=== PATIENT | male | born 1980 | race Caucasian/White ===

== ENCOUNTER 2018-12-17 20:19 | Observation (INO) ==
--- NOTE | 2018-12-17 21:01 | Emergency Department Note ---
ED Disposition Clinical Impression: IDDM (insulin dependent diabetes mellitus), Bronchitis, Tobacco use Diabetic ketoacidosis Qualifiers: Diabetes mellitus type: type 1 Diabetes mellitus complication detail: without coma Qualified Code(s): E10.10 - Type 1 diabetes mellitus with ketoacidosis without coma Disposition: Admitted as Observation Condition on Discharge: Good Instructions: DI for Hyperglycemia -- Adult Referrals: Provider,Referral, MD [Primary Care Provider] - - Critical Care Critical Care Time: No Attestation: On 12/17/18, the high probability of a clinically significant, sudden or life threatening deterioration of the following system(s) required my full and direct attention, intervention and personal management. The time I documented below is in addition to time spent performing reported procedures but includes the following listed in this critical care notation. Medical Decision Making - Medical Records Medical records reviewed: Yes: I reviewed the patient's medical records. - Nicola Inquiry Pt receiving controlled substance: No Vital Signs: 12/17/18 20:42 12/17/18 21:06 Temperature 99.0 F Temperature Source Oral Pulse Rate [Left] 54 L 90 Respiratory Rate 16 18 Blood Pressure [Right Arm] 128/58 L 125/70 Blood Pressure Mean [Right Arm] 81 88 Blood Pressure Source [Right Arm] Automatic Cuff Automatic Cuff Blood Pressure Position [Right Arm] Sitting Sitting 02 Sat by Pulse Oximetry 97 95 Oxygen Delivery Method Room Air - Lab Data Lab results reviewed: Yes: I reviewed the patient's lab results. Lab Results 12/17/18 20:49: POC Glucose 379 H* 12/17/18 20:55: WBC 8.2, RBC 5.66, Hgb 17.2, Hct 48.5, MCV 85.6, MCH 30.4, MCHC 35.5 H, RDW 13.5, Plt Count 375, MPV 7.1 L, Neut % (Auto) 63.0, Lymph % (Auto) 30.6, [place] % (Auto) 3.8, Eos % (Auto) 1.8, Baso % (Auto) 0.7, Neut # (Auto) 5.2, Lymph # (Auto) 2.5, [place] # (Auto) 0.3, Eos # (Auto) 0.2, Baso # (Auto) 0.1 12/17/18 20:55: Sodium 134 L, Potassium 4.2, Chloride 97 L, Carbon Dioxide 24, Anion Gap 17.2 H, BUN 20 H, Creatinine 1.00, Estimated Creat Clear 125, Estimated GFR 84, Est GFR ( Amer) 101, Glucose 460 H*, Calcium 9.1, Total Bilirubin 0.5, AST 3 L, ALT 18, Alkaline Phosphatase 115, Total Protein 7.0, Albumin 4.1, Globulin 2.9, Albumin/Globulin Ratio 1.4 12/17/18 20:55: Lactate 0.4 12/17/18 20:55: Acetone Level Small 12/17/18 21:20: Influenza Type A Ag Negative, Influenza Type B Ag Negative 12/17/18 21:20: Group A Strep Rapid Negative 12/17/18 21:40: Urine Color Yellow, Urine Appearance Clear, Urine pH 6.0, Ur Sp ecific [place] 1.020, Urine Protein Negative, Urine Glucose (UA) 3+, Urine Ketones 1+, Urine Blood Negative, Urine Nitrate Negative, Urine Bilirubin Negative, Urine Urobilinogen 0.2, Ur Leukocyte Esterase Negative Result diagrams: 12/17/18 20:55 12/17/18 20:55 Orders (Tests/Meds): ED MEDICATIONS Generic Name Dose Route Start Last Admin Trade Name Freq PRN Reason Stop Dose Admin Sodium Chloride 1,000 mls @ 999 mls/hr 12/17/18 21:00 12/17/18 21:00 Sod Chlor 0.9% 1000ml Bag IV 12/17/18 22:00 999 mls/hr .Q1H1M GITA Administration Sodium Chloride 1,000 mls @ 999 mls/hr 12/17/18 22:00 12/17/18 21:58 Sod Chlor 0.9% 1000ml Bag IV 12/17/18 23:00 999 mls/hr .Q1H1M GIAT Administration Sodium Chloride 10 ml 12/17/18 20:55 Saline Flush 10ml Syringe IV 01/16/19 20:54 NEEDED PRN Maintain IV Site ORDERS Category Date Time Status Chest XR 2 view (NOT portable) [XR chest 2V] Stat Exams 12/17/18 20:52 Taken Urinalysis and Microscopic Stat Lab 12/17/18 21:40 Results Blood Culture Stat Micro 12/17/18 21:08 Ordered Blood Culture Stat Micro 12/17/18 21:08 Ordered Blood Culture Stat Micro 12/17/18 21:08 Ordered Strep Screen Confirmation Stat Micro 12/17/18 21:20 Received - Radiology Data #1 Image(s): Chest Image Reviewed: Yes I reviewed the patient's radiology image Preliminary Findings: Abnormal (perihilar changes ) General Adult HPI - General Chief complaint: Hyper/Hypoglycemia Stated complaint: SUGAR HIGH Time Seen by Provider: 12/17/18 20:50 Mode of Arrival: Ambulatory Source of Information: Patient, Significant Other, Medical Record Limitations: No Limitations Description of Symptoms (Recalled from ER Triage Doc. by RN): Pt taking ABX for bronchitis and unable to keep his FSBS in limit 15 units Novolog at 1500 today - History of Present Illness HPI narrative: wm who is iddm and has registry np cough with persistant elevated glu despite meds and has been on abx x 1 day presents for eval- has hx of dka and tob use Onset (ago): day(s) Severity: moderate Associated symptoms: denies other symptoms Treatments prior to arrival: none - Related Data Home Medications Medication Instructions Recorded Confirmed Insulin Aspart [Novolog] 15 units SQ TID 07/07/18 12/17/18 Insulin Glargine,Hum.rec.anlog 100 unit SQ DAILY 07/07/18 12/17/18 [Basaglar Kwikpen U-100] Amoxicillin/Potassium Clav 1 tab PO Q12H 12/17/18 12/17/18 [Augmentin 875-125 Tablet] Benzonatate [Tessalon Perle 100mg 100 mg PO TID PRN 12/17/18 12/17/18 Cap] Pseudoephedrine HCl [Sudafed] 30 mg PO DAILY 12/17/18 12/17/18 Allergies Allergy/AdvReac Type Severity Reaction Status Date / Time acetaminophen [From Percocet] Allergy Verified 12/17/18 20:56 oxycodone [From Percocet] Allergy Verified 12/17/18 20:56 [facility] History - Hepatitis A Screen Drug use history?: No High risk sexual behaviors?: No History of sexually transmitted infection?: No Currently employed?: No Childcare worker?: No Do you have indoor plumbing?: Yes Do you have electricity?: Yes Attestation statement:: This patient has been screened for Hepatitis A risk factors. I have reviewed the patient's past medical history: Yes - Social History Smoking Status: Current every day smoker Tobacco Type: cigarettes Alcohol Intake: never Occupational Status: employed - Psychiatric History Expresses thoughts of harming self/others: None Suicide Plan Description: No Plan ROS Obtained: Yes All systems reviewed & no additional complaints - Constitutional Constitutional: Denies fever(s) - Eyes Eyes: Denies change in vision - ENT Ears, Nose, Mouth, and Throat: Denies sore throat - Cardiovascular Cardiovascular: Denies chest pain - Respiratory Respiratory: Yes cough, Yes non-productive cough, No coughing up blood - Gastrointestinal Gastrointestingal: Reports: nausea. Denies: abdominal pain - Genitourinary Male Genitourinary: Denies hematuria - Musculoskeletal Musculoskeletal: Denies joint pain, Denies neck pain - Integumentary/Breasts Skin/Breast: Denies rash - Neurologic Neurologic: Denies seizure-like activity Physical Exam - General General appearance: alert - Head Head exam: normocephalic - Eye Eye exam: Present: PERRL, EOMI. Absent: scleral icterus - ENT ENT exam: Present: mucous membranes dry - Neck Neck exam: Present: trachea midline - Respiratory Respiratory exam: Present: normal lung sounds bilaterally. Absent: respiratory distress - Cardiovascular Cardiovascular exam: Present: regular rate, systolic murmur - Abdominal Exam Abdominal exam: Present: soft - Extremities Exam Extremities exam: Present: full ROM - Neurological Exam Neurological exam: Present: oriented X3, CN II-XII intact - Psychiatric Psychiatric exam: Present: normal affect - Skin Skin exam: Absent: rash
[2018-12-17 21:09] LABS: Basophils # 0.1 K/mm3 (0-0.2); Basophils % 0.7 % (0.1-2.0); Eosinophils # 0.2 K/mm3 (0.0-0.4); Eosinophils % 1.8 % (0.1-12.0); Hematocrit 48.5 % (42.0-52.0); Hemoglobin 17.2 g/dL (14.1-18.0); Lymphocytes # 2.5 K/mm3 (0.7-4.5); Lymphocytes % 30.6 % (10-50); Mean Corpuscular HGB Conc 35.5 g/dL (31.8-35.4); Mean Corpuscular Hemoglobin 30.4 pg (27.0-31.2); Mean Corpuscular Volume 85.6 fl (80-94); Mean Platelet Volume 7.1 fl (7.4-10.4); Monocytes # 0.3 K/mm3 (0.1-1.0); Monocytes % 3.8 % (1.7-9.3); Neutrophils # 5.2 K/mm3 (1.8-7.8); Platelet Count 375 K/mm3 (142-424); Red Blood Count 5.66 M/mm3 (4.60-6.20); Red Cell Distribution Width 13.5 % (11.5-17.5); White Blood Count 8.2 K/mm3 (4.8-10.8)
[2018-12-17 21:27] LABS: Albumin Level 4.1 gm/dL (3.4-5.0); Albumin/Globulin Ratio 1.4 (1.1-1.8); Anion Gap 17.2 mEq/L (5-15); Bilirubin,Total 0.5 mg/dL (0.2-1.0); Calcium 9.1 mg/dL (8.5-10.1); Globulin 2.9 gm/dl (1.3-3.2); Potassium 4.2 mmoL/L (3.5-5.1)
[2018-12-17 21:47] LABS: Microscopic, Urine URINE MICROSCOPIC (MICROSCOPIC)
[2018-12-17 21:50] LABS: Appearance,Urine CLEAR (Clear); Bilirubin,Urine Negative (Negative); Blood, Urine Negative (Negative); Color,Urine YELLOW (Yellow); Glucose,Urine (UA) 3+ (Negative); Ketones,Urine 1+ (Negative); Leukocyte Esterase,Urine Negative (Negative); Protein,Urine Negative (Negative); Urobilinogen,Urine 0.2 EU/dl (0.2)
[2018-12-17 22:14] LABS: WBC,Urine Occasional #/hpf (0-3)
[2018-12-17 22:15] LABS: Bacteria,Urine Trace /lpf
[2018-12-18 07:33] LABS: Basophils % 0.7 % (0.1-2.0); Monocytes # 0.3 K/mm3 (0.1-1.0)
[2018-12-18 07:44] LABS: Eosinophils # 0.1 K/mm3 (0.0-0.4); Hematocrit 42.4 % (42.0-52.0); Lymphocytes # 2.4 K/mm3 (0.7-4.5); Lymphocytes % 35.1 % (10-50); Mean Corpuscular HGB Conc 34.8 g/dL (31.8-35.4); Mean Corpuscular Hemoglobin 29.8 pg (27.0-31.2); Mean Corpuscular Volume 85.5 fl (80-94); Mean Platelet Volume 7.1 fl (7.4-10.4); Monocytes % 4.6 % (1.7-9.3); Neutrophils # 3.9 K/mm3 (1.8-7.8); Neutrophils % 57.7 % (37.0-80.0); Platelet Count 258 K/mm3 (142-424); Red Blood Count 4.95 M/mm3 (4.60-6.20); Red Cell Distribution Width 13.6 % (11.5-17.5); White Blood Count 6.7 K/mm3 (4.8-10.8)
[2018-12-18 07:46] LABS: Anion Gap 11.2 mEq/L (5-15); Calcium 8.3 mg/dL (8.5-10.1); Chol/HDL Ratio 4.6 (1-3.5); Potassium 3.2 mmoL/L (3.5-5.1)
[2018-12-18 07:51] LABS: Hemoglobin 14.8 g/dL (14.1-18.0)
--- NOTE | 2018-12-18 08:05 | Pharmacy Consult Notes ---
[facility] Pharmacy VTE Monitoring - Patient Demographics Admission date: 12/17/18 Report Date: 12/18/18 Time: 08:05 Allergies/Adverse Reactions: Patient Allergies acetaminophen [From Percocet] Allergy (Verified 12/17/18 20:56) oxycodone [From Percocet] Allergy (Verified 12/17/18 20:56) Height: 1.8 m Weight: 87.742 kg Patient Problems: Current Active Problems IDDM (insulin dependent diabetes mellitus) (Acute) Diabetic ketoacidosis (Acute) Bronchitis (Acute) Tobacco use (Acute) - VTE Risk Labs: VTE Related Lab Results Hgb 14.8 g/dL (14.1-18.0) D 12/18/18 06:22 Hct 42.4 % (42.0-52.0) 12/18/18 06:22 Plt Count 258 K/mm3 (142-424) D 12/18/18 06:22 BUN 13 mg/dL (7-18) D 12/18/18 06:22 Creatinine 0.67 mg/dL (0.70-1.30) L D 12/18/18 06:22 Estimated Creat Clear 186 mL/min (50-200) 12/18/18 06:22 Was VTE Risk Assessment Performed: Yes VTE Score: 1 VTE Risk Level: Very Low Risk Clinical Trial Participant: No - Prophylaxis VTE Prophylaxis Ordered?: Yes Types of VTE Prophylaxis: TEDS Knee High Location of Applied Device: Not Applicable
--- NOTE | 2018-12-18 08:41 | H&P/Discharge Summary ---
<Kenia Griggs - Last Filed: 12/18/18 11:56> General - General Admission date:: 12/17/18 Discharge date: 12/18/18 *Admission Date: 12/17/18 *Chief complaint: elevated glucose levels *History of present illness: Mr. Grigsby is a 38-year-old male with type 1 diabetes. He states he began feeling poorly on Friday with some cough and congestion and his glucose began elevating. His glucose stayed elevated all day on Friday, and on, Friday he went to see his primary care physician Dr. Jesus in [place]. He had a flu swab done which was negative and he was diagnosed with a bronchitis. He was started on Augmentin as well as some Sudafed and Tessalon Perles for his bronchitis. He states he went home and took the medication, but his glucose continued to elevate. He had to take 105 units of insulin on Friday and his glucose still stayed above 245. Most of the glucose checks were not even able to be read on his monitor. He states he has been in DKA 4-5 times in the last y ear and always been related to illness, therefore he went ahead and presented to the emergency room when he could not get his sugar below 250. He was found to be in DKA and was started on insulin as well as antibiotics for his bronchitis. The patient's glucose has improved greatly and was in the 100s this morning. His acetone is negative. He states he feels great and is anxious to get home. [facility] History I have reviewed the patient's past medical history: Yes Medical History: Reports:: Diabetes Mellitus Type 1 Denies:: MRSA *Have you ever received a pneumonia vaccine?: No *Have you received a flu vaccine this season?: No Other Surgeries: Yes: Hernia Repair - *Social History Educational Level: Attended College Smoking Status: Current every day smoker Tobacco Type: cigarettes # Packs/Day (cigarettes): 1 Alcohol Intake: never *Occupational Status:: employed Household Members: spouse, children *Travel in the last 8 weeks: None - Psychiatric History Expresses thoughts of harming self/others: None Suicide Plan Description: No Plan Family Hx:: Cancer, Diabetes, Hyperlipidemia, Hypertension Review of Systems - Constitutional Reports fever(s), Reports weakness - Eyes Denies blurry vision, Denies double vision - ENT Reports sore throat, Denies nasal congestion - *Cardiovascular Denies chest pain, Denies rapid, pounding, or irregular heartbeat - *Respiratory Reports cough, Denies shortness of breath, Denies wheezing - *Gastrointestinal Reports abdominal pain, Denies loose stools, Denies nausea, Denies vomiting - *Genitourinary Denies difficulty urinating, Denies painful urination - *Musculoskeletal Denies joint pain, Denies body aches - *Neurologic Denies seizure-like activity, Denies dizziness, Denies weakness Exam Vital signs and Labs for Last 24 Hours: Temp Pulse Resp BP Pulse Ox 98.0 F 62 17 112/73 98 12/18/18 04:00 12/18/18 04:00 12/18/18 04:00 12/18/18 04:00 12/18/18 04:00 Laboratory Results - last 24 hr 12/17/18 20:49: POC Glucose 379 H* 12/17/18 20:55: WBC 8.2, RBC 5.66, Hgb 17.2, Hct 48.5, MCV 85.6, MCH 30.4, MCHC 35.5 H, RDW 13.5, Plt Count 375, MPV 7.1 L, Neut % (Auto) 63.0, Lymph % (Auto) 30.6, Garfield % (Auto) 3.8, Eos % (Auto) 1.8, Baso % (Auto) 0.7, Neut # (Auto) 5.2, Lymph # (Auto) 2.5, Garfield # (Auto) 0.3, Eos # (Auto) 0.2, Baso # (Auto) 0.1 12/17/18 20:55: Sodium 134 L, Potassium 4.2, Chloride 97 L, Carbon Dioxide 24, Anion Gap 17.2 H, BUN 20 H, Creatinine 1.00, Estimated Creat Clear 125, Estimated GFR 84, Est GFR ( Amer) 101, Glucose 460 H*, Calcium 9.1, Total Bilirubin 0.5, AST 3 L, ALT 18, Alkaline Phosphatase 115, Total Protein 7.0, Albumin 4.1, Globulin 2.9, Albumin/Globulin Ratio 1.4 12/17/18 20:55: Lactate 0.4 12/17/18 20:55: Acetone Level Small 12/17/18 21:20: Influenza Type A Ag Negative, Influenza Type B Ag Negative 12/17/18 21:20: Group A Strep Rapid Negative 12/17/18 21:40: Urine Color Yellow, Urine Appearance Clear, Urine pH 6.0, Ur Specific [place] 1.020, Urine Protein Negative, Urine Glucose (UA) 3+, Urine Ketones 1+, Urine Blood Negative, Urine Nitrate Negative, Urine Bilirubin Negative, Urine Urobilinogen 0.2, Ur Leukocyte Esterase Negative, Urine RBC None, Urine WBC Occasional, Ur Squamous Epith Cells 5-10, Urine Bacteria Trace 12/17/18 23:05: POC Glucose 445 H* 12/18/18 06:22: WBC 6.7, RBC 4.95, Hgb 14.8 D, Hct 42.4, MCV 85.5, MCH 29.8, MCHC 34.8, RDW 13.6, Plt Count 258 D, MPV 7.1 L, Neut % (Auto) 57.7, Lymph % (Auto) 35.1, Garfield % (Auto) 4.6, Eos % (Auto) 2.0, Baso % (Auto) 0.7, Neut # (Auto) 3.9, Lymph # (Auto) 2.4, Garfield # (Auto) 0.3, Eos # (Auto) 0.1, Baso # (Auto) 0.0 12/18/18 06:22: Sodium 140, Potassium 3.2 L D, Chloride 107, Carbon Dioxide 25, Anion Gap 11.2, BUN 13 D, Creatinine 0.67 L D, Estimated Creat Clear 186, Estimated GFR 133, Est GFR ( Amer) 161 D, Glucose 106 D, Calcium 8.3 L, Magnesium 1.8, Triglycerides 300 H, Cholesterol 137 L, LDL Cholesterol 47, VLDL Cholesterol 60 H, HDL Cholesterol 30, Cholesterol/HDL Ratio 4.6 H 12/18/18 06:22: Acetone Level None detected 12/18/18 06:39: POC Glucose 101 I & O for Last 24 hours: Intake & Output 12/15/18 12/16/18 12/17/18 12/18/18 11:59 11:59 11:59 11:59 Intake Total 3446 / 3446 Balance 3446 / 3446 Weight 193 lb 7 oz - Constitutional no acute distress - *Routine HEENT Exam Head: Present: normocephalic Eye: Present: EOMI, PERRL ENT: Present: mucous membranes dry - *Routine Neck Exam Present: supple. Absent: lymphadenopathy - *Routine Respiratory Exam Present: CTA bilaterally - *Routine Cardiovascular Exam Present: RRR - *Routine Abdominal Exam Present: soft, normoactive bowel sounds. Absent: tenderness - *Routine Extremities Exam Absent: cyanosis, clubbing, edema - *Routine Skin Exam Present: warm. Absent: rash - *Routine Neurological Exam Present: alert, oriented X3 Hospital Course Hospital Course: The patient was started on insulin, IV fluids, and antibiotics for his bronchitis. His glucose decreased down into the 100s and he began feeling much better. His second acetone level showed none detected. His cough was minimal and he was able to tolerate a diet and move about in his room. His potassium was slightly low. Will give a dose now before discharge. He was anxious to go home and was stable to be discharged home. He will need to follow-up with his primary care provider. Results Labs on day of discharge: Labs from last 24 hours 12/18/18 12/18/18 12/18/18 06:39 06:22 06:22 WBC RBC Hgb Hct MCV MCH MCHC RDW Plt Count MPV Neut % (Auto) Lymph % (Auto) Garfield % (Auto) Eos % (Auto) Baso % (Auto) Neut # (Auto) Lymph # (Auto) Garfield # (Auto) Eos # (Auto) Baso # (Auto) Sodium 140 Potassium 3.2 L D Chloride 107 Carbon Dioxide 25 Anion Gap 11.2 BUN 13 D Creatinine 0.67 L D Estimated Creat Clear 186 Estimated GFR 133 Est GFR ( Amer) 161 D Glucose 106 D POC Glucose 101 Lactate Calcium 8.3 L Magnesium 1.8 Total Bilirubin AST ALT Alkaline Phosphatase Total Protein Albumin Globulin Albumin/Globulin Ratio Triglycerides 300 H Cholesterol 137 L LDL Cholesterol 47 VLDL Cholesterol 60 H HDL Cholesterol 30 Cholesterol/HDL Ratio 4.6 H Urine Color Urine Appearance Urine pH Ur Specific [place] Urine Protein Urine Glucose (UA) Urine Ketones Urine Blood Urine Nitrate Urine Bilirubin Urine Urobilinogen Ur Leukocyte Esterase Urine RBC Urine WBC Ur Squamous Epith Cells Urine Bacteria Acetone Level None detected Influenza Type A Ag Influenza Type B Ag Group A Strep Rapid 12/18/18 12/17/18 12/17/18 06:22 23:05 21:40 WBC 6.7 RBC 4.95 Hgb 14.8 D Hct 42.4 MCV 85.5 MCH 29.8 MCHC 34.8 RDW 13.6 Plt Count 258 D MPV 7.1 L Neut % (Auto) 57.7 Lymph % (Auto) 35.1 Garfield % (Auto) 4.6 Eos % (Auto) 2.0 Baso % (Auto) 0.7 Neut # (Auto) 3.9 Lymph # (Auto) 2.4 Garfield # (Auto) 0.3 Eos # (Auto) 0.1 Baso # (Auto) 0.0 Sodium Potassium Chloride Carbon Dioxide Anion Gap BUN Creatinine Estimated Creat Clear Estimated GFR Est GFR ( Amer) Glucose POC Glucose 445 H* Lactate Calcium Magnesium Total Bilirubin AST ALT Alkaline Phosphatase Total Protein Albumin Globulin Albumin/Globulin Ratio Triglycerides Cholesterol LDL Cholesterol VLDL Cholesterol HDL Cholesterol Cholesterol/HDL Ratio Urine Color Yellow Urine Appearance Clear Urine pH 6.0 Ur Specific [place] 1.020 Urine Protein Negative Urine Glucose (UA) 3+ Urine Ketones 1+ Urine Blood Negative Urine Nitrate Negative Urine Bilirubin Negative Urine Urobilinogen 0.2 Ur Leukocyte Esterase Negative Urine RBC None Urine WBC Occasional Ur Squamous Epith Cells 5-10 Urine Bacteria Trace Acetone Level Influenza Type A Ag Influenza Type B Ag Group A Strep Rapid 12/17/18 12/17/18 12/17/18 21:20 21:20 20:55 WBC RBC Hgb Hct MCV MCH MCHC RDW Plt Count MPV Neut % (Auto) Lymph % (Auto) Garfield % (Auto) Eos % (Auto) Baso % (Auto) Neut # (Auto) Lymph # (Auto) Garfield # (Auto) Eos # (Auto) Baso # (Auto) Sodium Potassium Chloride Carbon Dioxide Anion Gap BUN Creatinine Estimated Creat Clear Estimated GFR Est GFR ( Amer) Glucose POC Glucose Lactate Calcium Magnesium Total Bilirubin AST ALT Alkaline Phosphatase Total Protein Albumin Globulin Albumin/Globulin Ratio Triglycerides Cholesterol LDL Cholesterol VLDL Cholesterol HDL Cholesterol Cholesterol/HDL Ratio Urine Color Urine Appearance Urine pH Ur Specific [place] Urine Protein Urine Glucose (UA) Urine Ketones Urine Blood Urine Nitrate Urine Bilirubin Urine Urobilinogen Ur Leukocyte Esterase Urine RBC Urine WBC Ur Squamous Epith Cells Urine Bacteria Acetone Level Small Influenza Type A Ag Negative Influenza Type B Ag Negative Group A Strep Rapid Negative 12/17/18 12/17/18 12/17/18 20:55 20:55 20:55 WBC 8.2 RBC 5.66 Hgb 17.2 Hct 48.5 MCV 85.6 MCH 30.4 MCHC 35.5 H RDW 13.5 Plt Count 375 MPV 7.1 L Neut % (Auto) 63.0 Lymph % (Auto) 30.6 Garfield % (Auto) 3.8 Eos % (Auto) 1.8 Baso % (Auto) 0.7 Neut # (Auto) 5.2 Lymph # (Auto) 2.5 Garfield # (Auto) 0.3 Eos # (Auto) 0.2 Baso # (Auto) 0.1 Sodium 134 L Potassium 4.2 Chloride 97 L Carbon Dioxide 24 Anion Gap 17.2 H BUN 20 H Creatinine 1.00 Estimated Creat Clear 125 Estimated GFR 84 Est GFR ( Amer) 101 Glucose 460 H* POC Glucose Lactate 0.4 Calcium 9.1 Magnesium Total Bilirubin 0.5 AST 3 L ALT 18 Alkaline Phosphatase 115 Total Protein 7.0 Albumin 4.1 Globulin 2.9 Albumin/Globulin Ratio 1.4 Triglycerides Cholesterol LDL Cholesterol VLDL Cholesterol HDL Cholesterol Cholesterol/HDL Ratio Urine Color Urine Appearance Urine pH Ur Specific [place] Urine Protein Urine Glucose (UA) Urine Ketones Urine Blood Urine Nitrate Urine Bilirubin Urine Urobilinogen Ur Leukocyte Esterase Urine RBC Urine WBC Ur Squamous Epith Cells Urine Bacteria Acetone Level Influenza Type A Ag Influenza Type B Ag Group A Strep Rapid 12/17/18 20:49 WBC RBC Hgb Hct MCV MCH MCHC RDW Plt Count MPV Neut % (Auto) Lymph % (Auto) Garfield % (Auto) Eos % (Auto) Baso % (Auto) Neut # (Auto) Lymph # (Auto) Garfield # (Auto) Eos # (Auto) Baso # (Auto) Sodium Potassium Chloride Carbon Dioxide Anion Gap BUN Creatinine Estimated Creat Clear Estimated GFR Est GFR ( Amer) Glucose POC Glucose 379 H* Lactate Calcium Magnesium Total Bilirubin AST ALT Alkaline Phosphatase Total Protein Albumin Globulin Albumin/Globulin Ratio Triglycerides Cholesterol LDL Cholesterol VLDL Cholesterol HDL Cholesterol Cholesterol/HDL Ratio Urine Color Urine Appearance Urine pH Ur Specific [place] Urine Protein Urine Glucose (UA) Urine Ketones Urine Blood Urine Nitrate Urine Bilirubin Urine Urobilinogen Ur Leukocyte Esterase Urine RBC Urine WBC Ur Squamous Epith Cells Urine Bacteria Acetone Level Influenza Type A Ag Influenza Type B Ag Group A Strep Rapid - Impressions CXR Negative chest, no acute finding DS: Diagnosis - Discharge Diagnosis (1) Bronchitis Status: Acute (2) Diabetic ketoacidosis Status: Acute (3) Hypokalemia Status: Acute (4) IDDM (insulin dependent diabetes mellitus) Status: Chronic Discharge Medications - Medications for Discharge Home Medication List at Discharge: New Azithromycin [Zithromax 500mg Tab Tri-Tong] 500 mg PO DAILY #3 tab Continue RX: Insulin Glargine,Hum.rec.anlog [Basaglar Kwikpen U-100] 40 unit SQ BID RX: Insulin Aspart [Novolog] 15 units SQ TID RX: Pseudoephedrine HCl [Sudafed] 30 mg PO DAILY RX: Benzonatate [Tessalon Perle 100mg Cap] 100 mg PO TID PRN PRN Reason: Cough RX: Amoxicillin/Potassium Clav [Augmentin 875-125 Tablet] 1 tab PO Q12H Disposition Disposition: Home, Self-Care <BerkleyNachoMohamud - Last Filed: 12/18/18 16:53> General - General Admission date:: 12/17/18 Exam Vital signs and Labs for Last 24 Hours: Temp Pulse Resp BP Pulse Ox 98.1 F 72 18 115/20 L 97 12/18/18 08:00 12/18/18 08:00 12/18/18 08:00 12/18/18 08:00 12/18/18 08:00 Laboratory Results - last 24 hr 12/17/18 20:49: POC Glucose 379 H* 12/17/18 20:55: WBC 8.2, RBC 5.66, Hgb 17.2, Hct 48.5, MCV 85.6, MCH 30.4, MCHC 35.5 H, RDW 13.5, Plt Count 375, MPV 7.1 L, Neut % (Auto) 63.0, Lymph % (Auto) 30.6, Garfield % (Auto) 3.8, Eos % (Auto) 1.8, Baso % (Auto) 0.7, Neut # (Auto) 5.2, Lymph # (Auto) 2.5, Garfield # (Auto) 0.3, Eos # (Auto) 0.2, Baso # (Auto) 0.1 12/17/18 20:55: Sodium 134 L, Potassium 4.2, Chloride 97 L, Carbon Dioxide 24, Anion Gap 17.2 H, BUN 20 H, Creatinine 1.00, Estimated Creat Clear 125, Estimated GFR 84, Est GFR ( Amer) 101, Glucose 460 H*, Calcium 9.1, Total Bilirubin 0.5, AST 3 L, ALT 18, Alkaline Phosphatase 115, Total Protein 7.0, Albumin 4.1, Globulin 2.9, Albumin/Globulin Ratio 1.4 12/17/18 20:55: Lactate 0.4 12/17/18 20:55: Acetone Level Small 12/17/18 21:20: Influenza Type A Ag Negative, Influenza Type B Ag Negative 12/17/18 21:20: Group A Strep Rapid Negative 12/17/18 21:40: Urine Color Yellow, Urine Appearance Clear, Urine pH 6.0, Ur Specific [place] 1.020, Urine Protein Negative, Urine Glucose (UA) 3+, Urine Ketones 1+, Urine Blood Negative, Urine Nitrate Negative, Urine Bilirubin Negative, Urine Urobilinogen 0.2, Ur Leukocyte Esterase Negative, Urine RBC None, Urine WBC Occasional, Ur Squamous Epith Cells 5-10, Urine Bacteria Trace 12/17/18 23:05: POC Glucose 445 H* 12/18/18 06:22: WBC 6.7, RBC 4.95, Hgb 14.8 D, Hct 42.4, MCV 85.5, MCH 29.8, MCHC 34.8, RDW 13.6, Plt Count 258 D, MPV 7.1 L, Neut % (Auto) 57.7, Lymph % (Auto) 35.1, Garfield % (Auto) 4.6, Eos % (Auto) 2.0, Baso % (Auto) 0.7, Neut # (Auto) 3.9, Lymph # (Auto) 2.4, Garfield # (Auto) 0.3, Eos # (Auto) 0.1, Baso # (Auto) 0.0 12/18/18 06:22: Sodium 140, Potassium 3.2 L D, Chloride 107, Carbon Dioxide 25, Anion Gap 11.2, BUN 13 D, Creatinine 0.67 L D, Estimated Creat Clear 186, Estimated GFR 133, Est GFR ( Amer) 161 D, Glucose 106 D, Calcium 8.3 L, Magnesium 1.8, Triglycerides 300 H, Cholesterol 137 L, LDL Cholesterol 47, VLDL Cholesterol 60 H, HDL Cholesterol 30, Cholesterol/HDL Ratio 4.6 H 12/18/18 06:22: Acetone Level None detected 12/18/18 06:39: POC Glucose 101 I & O for Last 24 hours: Intake & Output 12/16/18 12/17/18 12/18/18 12/19/18 11:59 11:59 11:59 11:59 Intake Total 3446 / 3446 Balance 3446 / 3446 Weight 193 lb 7 oz Hospital Course Hospital Course: Saw patient, agree with above note. Results Labs on day of discharge: Labs from last 24 hours 12/18/18 12/18/18 12/18/18 06:39 06:22 06:22 WBC RBC Hgb Hct MCV MCH MCHC RDW Plt Count MPV Neut % (Auto) Lymph % (Auto) Garfield % (Auto) Eos % (Auto) Baso % (Auto) Neut # (Auto) Lymph # (Auto) Garfield # (Auto) Eos # (Auto) Baso # (Auto) Sodium 140 Potassium 3.2 L D Chloride 107 Carbon Dioxide 25 Anion Gap 11.2 BUN 13 D Creatinine 0.67 L D Estimated Creat Clear 186 Estimated GFR 133 Est GFR ( Amer) 161 D Glucose 106 D POC Glucose 101 Lactate Calcium 8.3 L Magnesium 1.8 Total Bilirubin AST ALT Alkaline Phosphatase Total Protein Albumin Globulin Albumin/Globulin Ratio Triglycerides 300 H Cholesterol 137 L LDL Cholesterol 47 VLDL Cholesterol 60 H HDL Cholesterol 30 Cholesterol/HDL Ratio 4.6 H Urine Color Urine Appearance Urine pH Ur Specific [place] Urine Protein Urine Glucose (UA) Urine Ketones Urine Blood Urine Nitrate Urine Bilirubin Urine Urobilinogen Ur Leukocyte Esterase Urine RBC Urine WBC Ur Squamous Epith Cells Urine Bacteria Acetone Level None detected Influenza Type A Ag Influenza Type B Ag Group A Strep Rapid 12/18/18 12/17/18 12/17/18 06:22 23:05 21:40 WBC 6.7 RBC 4.95 Hgb 14.8 D Hct 42.4 MCV 85.5 MCH 29.8 MCHC 34.8 RDW 13.6 Plt Count 258 D MPV 7.1 L Neut % (Auto) 57.7 Lymph % (Auto) 35.1 Garfield % (Auto) 4.6 Eos % (Auto) 2.0 Baso % (Auto) 0.7 Neut # (Auto) 3.9 Lymph # (Auto) 2.4 Garfield # (Auto) 0.3 Eos # (Auto) 0.1 Baso # (Auto) 0.0 Sodium Potassium Chloride Carbon Dioxide Anion Gap BUN Creatinine Estimated Creat Clear Estimated GFR Est GFR ( Amer) Glucose POC Glucose 445 H* Lactate Calcium Magnesium Total Bilirubin AST ALT Alkaline Phosphatase Total Protein Albumin Globulin Albumin/Globulin Ratio Triglycerides Cholesterol LDL Cholesterol VLDL Cholesterol HDL Cholesterol Cholesterol/HDL Ratio Urine Color Yellow Urine Appearance Clear Urine pH 6.0 Ur Specific [place] 1.020 Urine Protein Negative Urine Glucose (UA) 3+ Urine Ketones 1+ Urine Blood Negative Urine Nitrate Negative Urine Bilirubin Negative Urine Urobilinogen 0.2 Ur Leukocyte Esterase Negative Urine RBC None Urine WBC Occasional Ur Squamous Epith Cells 5-10 Urine Bacteria Trace Acetone Level Influenza Type A Ag Influenza Type B Ag Group A Strep Rapid 12/17/18 12/17/18 12/17/18 21:20 21:20 20:55 WBC RBC Hgb Hct MCV MCH MCHC RDW Plt Count MPV Neut % (Auto) Lymph % (Auto) Garfield % (Auto) Eos % (Auto) Baso % (Auto) Neut # (Auto) Lymph # (Auto) Garfield # (Auto) Eos # (Auto) Baso # (Auto) Sodium Potassium Chloride Carbon Dioxide Anion Gap BUN Creatinine Estimated Creat Clear Estimated GFR Est GFR ( Amer) Glucose POC Glucose Lactate Calcium Magnesium Total Bilirubin AST ALT Alkaline Phosphatase Total Protein Albumin Globulin Albumin/Globulin Ratio Triglycerides Cholesterol LDL Cholesterol VLDL Cholesterol HDL Cholesterol Cholesterol/HDL Ratio Urine Color Urine Appearance Urine pH Ur Specific [place] Urine Protein Urine Glucose (UA) Urine Ketones Urine Blood Urine Nitrate Urine Bilirubin Urine Urobilinogen Ur Leukocyte Esterase Urine RBC Urine WBC Ur Squamous Epith Cells Urine Bacteria Acetone Level Small Influenza Type A Ag Negative Influenza Type B Ag Negative Group A Strep Rapid Negative 12/17/18 12/17/18 12/17/18 20:55 20:55 20:55 WBC 8.2 RBC 5.66 Hgb 17.2 Hct 48.5 MCV 85.6 MCH 30.4 MCHC 35.5 H RDW 13.5 Plt Count 375 MPV 7.1 L Neut % (Auto) 63.0 Lymph % (Auto) 30.6 Garfield % (Auto) 3.8 Eos % (Auto) 1.8 Baso % (Auto) 0.7 Neut # (Auto) 5.2 Lymph # (Auto) 2.5 Garfield # (Auto) 0.3 Eos # (Auto) 0.2 Baso # (Auto) 0.1 Sodium 134 L Potassium 4.2 Chloride 97 L Carbon Dioxide 24 Anion Gap 17.2 H BUN 20 H Creatinine 1.00 Estimated Creat Clear 125 Estimated GFR 84 Est GFR ( Amer) 101 Glucose 460 H* POC Glucose Lactate 0.4 Calcium 9.1 Magnesium Total Bilirubin 0.5 AST 3 L ALT 18 Alkaline Phosphatase 115 Total Protein 7.0 Albumin 4.1 Globulin 2.9 Albumin/Globulin Ratio 1.4 Triglycerides Cholesterol LDL Cholesterol VLDL Cholesterol HDL Cholesterol Cholesterol/HDL Ratio Urine Color Urine Appearance Urine pH Ur Specific [place] Urine Protein Urine Glucose (UA) Urine Ketones Urine Blood Urine Nitrate Urine Bilirubin Urine Urobilinogen Ur Leukocyte Esterase Urine RBC Urine WBC Ur Squamous Epith Cells Urine Bacteria Acetone Level Influenza Type A Ag Influenza Type B Ag Group A Strep Rapid 12/17/18 20:49 WBC RBC Hgb Hct MCV MCH MCHC RDW Plt Count MPV Neut % (Auto) Lymph % (Auto) [place]field % (Auto) Eos % (Auto) Baso % (Auto) Neut # (Auto) Lymph # (Auto) Garfield # (Auto) Eos # (Auto) Baso # (Auto) Sodium Potassium Chloride Carbon Dioxide Anion Gap BUN Creatinine Estimated Creat Clear Estimated GFR Est GFR ( Amer) Glucose POC Glucose 379 H* Lactate Calcium Magnesium Total Bilirubin AST ALT Alkaline Phosphatase Total Protein Albumin Globulin Albumin/Globulin Ratio Triglycerides Cholesterol LDL Cholesterol VLDL Cholesterol HDL Cholesterol Cholesterol/HDL Ratio Urine Color Urine Appearance Urine pH Ur Specific [place] Urine Protein Urine Glucose (UA) Urine Ketones Urine Blood Urine Nitrate Urine Bilirubin Urine Urobilinogen Ur Leukocyte Esterase Urine RBC Urine WBC Ur Squamous Epith Cells Urine Bacteria Acetone Level Influenza Type A Ag Influenza Type B Ag Group A Strep Rapid DS: Diagnosis - Discharge Diagnosis (1) Bronchitis Status: Acute (2) Diabetic ketoacidosis Status: Acute (3) Hypokalemia Status: Acute (4) IDDM (insulin dependent diabetes mellitus) Status: Chronic
== END 2018-12-18 09:51 | disposition home or self-care (01) ==
LOC: 2ND 20:19 → ER 20:19 → 2ND 22:49
PROVIDERS: ADMIT Family Medicine; ATTEND Family Medicine
CPT/HCPCS: 71020; 71046; 80048; 80053; 80061; 81001; 82009; 82962; 83605; 83735; 85025; 87040; 87275; 87276; 87430; 96365; 96367; 99284; G0378; J0456